=== PATIENT | male | born 1955 | race Caucasian/White ===

== ENCOUNTER 2017-12-06 12:36 | Outpatient (CLI) | payer OTHER ==
[2017-12-06] MEDS ORDERED: BUPIVACAINE HCL/PF 2.5 MG/ML 10ML VIAL IV ONE (12:37)
[2017-12-06] MEDS ORDERED: SALINE FLUSH 10 ML DISP.SYRIN IVF ONE (12:37)
[2017-12-06] MEDS ORDERED: Lidocaine 1% 5ml(IM or SUTURE)(PAIN CLINIC) ONE (12:37)
[2017-12-06] MEDS ORDERED: TRIAMCINOLONE ACETONID 40MG/ML VIAL ONE (12:37)
--- NOTE | 2017-12-07 10:45 | LUMBAR TFESI ---
SUBJECTIVE: Mr. Rivera is seen today in follow up. I saw him in 2016 with right lower extremity pain. He had near 100% relief with a right L5 transforaminal for right and left L5-S1 neural foraminal stenosis and radiculitis. He comes in today and the symptoms have reoccurred but now down the left leg L5 distribution , posterior hip, lateral thigh, and lateral leg with a positive straight leg raise. At this point, I am going to plan for a left L5 transforaminal epidural steroid Injection with fluoroscopic guidance. PROCEDURE: Left L5 transforaminal epidural steroid Injection with fluoroscopic guidance. DESCRIPTION OF PROCEDURE: The risks and benefits were discussed with the patient including the risks of infection, bleeding, nerve injury, and headache, as well as the risks of steroid exposure causing hyperglycemia, hypertension, osteoporosis, or increased infectious risk. The patient understood these risks and agreed to proceed. Consent was obtained. The patient was placed in the prone position on the fluoroscopy table with a pillow underneath the abdomen to afford anterior flexion of the lumbar spine. The low back was cleaned and a sterile drape was applied. AP, lateral, and oblique fluoroscopic views were obtained identifying the L5 vertebral body and L5 transverse process. An oblique view of the transverse process and pedicles was obtained. A 23-gauge, Quincke tip 3.5 spinal needle was advanced under direct-beam (barrel view) fluoroscopic guidance until the tip contacted the superior-most aspect of the left S1 superior articulating process. The needle was then directed superiorly and medially a few millimeters towards the intervertebral foramen. A lateral fluoroscopic view was obtained and the needle was advanced into the inferior/anterior aspect of the L5 neural foramen (L5- [id number] foramen) epidural space. It was verified that there was no aspiration of CSF or blood. Omnipaque 240 myelogram dye was injected through the needle. The dye was noted to course in the desired distribution within the lumbar foramen epidural space. The medication was injected into the epidural space. The stylet was replaced in the needle and the needle was removed from the back. The patient tolerated the procedure well. The back was cleaned and a bandage was applied over the injection site. The patient was monitored for 20 minutes following the procedure. During this time the vital signs remained stable and the patient experienced no adverse sequelae. The patient was discharged home in good condition. ASSESSMENT: 1. Lumbar radicular pain. 2. Lumbar radiculitis. 3. L5 neural foraminal stenosis. PLAN: Left L5 transforaminal epidural steroid Injection with fluoroscopic guidance. FOLLOWUP: Return to clinic if problems develop or worsen. MAGO
== END 2017-12-06 12:38 ==
LOC: OUT 12:36
PROVIDERS: ATTEND Anesthesiology Pain Medicine
DX: M54.16 Radiculopathy, lumbar region (principal)
CPT/HCPCS: 64483; 99213; J3301; A4550; J3490; Q9966

== ENCOUNTER 2018-01-24 08:29 | Outpatient (CLI) | payer OTHER ==
--- NOTE | 2018-01-27 12:42 | PAIN CLINIC PROGRESS NOTES ---
REASON FOR VISIT: I had the opportunity of following up with Kyler Rivera today as an outpatient at [facility]. This gentleman presented with left lower extremity radiculitis, leg pain, and had a left L5 transforaminal nerve root injection performed on the 06 of December for left lower extremity radiculitis. Since that time, his symptoms have resolved. I spent time with him this morning discussing the fact that he has a broad-based disc protrusion with bilateral neural foraminal stenosis at L5 which can cause an irritation of the nerve root. ASSESSMENT: Lumbar radiculitis, symptoms now resolved. PLAN: I discussed activities, particularly lifting and twisting, to avoid, core strengthening exercises and stretching exercises, and that if the symptoms should worsen or reoccur, he could follow up with me at [facility]. MAGO
== END 2018-01-24 08:31 ==
LOC: OUT 08:29
PROVIDERS: ATTEND Anesthesiology Pain Medicine
DX: M54.16 Radiculopathy, lumbar region (principal)
CPT/HCPCS: 99213